=== PATIENT | female | born 1985 | race Caucasian/White ===

== ENCOUNTER 2018-07-09 12:26 | Outpatient (CLI) | payer OTHER ==
[~2018-07-09] VITALS: Ht 167.6 cm; Wt 68.9 kg
[2018-07-09 12:53] VITALS: Ht 167.6 cm; Wt 68.9 kg
[2018-07-09 12:54] VITALS: BP 99/58; PULSE 75; RESP 20
[2018-07-09] MEDS ORDERED: PREN1TAB13 PO (12:57)
[2018-07-09] MEDS ORDERED: ASPI-831 PO (12:58)
--- NOTE | 2018-07-09 14:22 | PN ---
Triage Information Date/Time Reason for visit: Itching Weeks of Gestation 25+ /Para 5/3 Diabetes: none Hypertention: none Objective Vital Signs Date Temp Pulse Resp B/P (MAP) Pulse Ox O2 O2 Flow FiO2 Time Delivery Rate 07/09/18 98.3 75 20 99/58 (72) Room Air 12:54 Heart Rate: 140's Contractions: None Results/Medications Result Diagram: 07/09/18 1259 Results 24 hrs Laboratory Tests Test 07/09/18 12:59 Sodium Level 136 Potassium Level 3.7 Chloride Level 105 Carbon Dioxide Level 22 Anion Gap 9 Blood Urea Nitrogen 8 Creatinine 0.51 Est Glomerular Filtrat Rate mL/min > 60 Glucose Level 84 Calcium Level 8.9 Total Bilirubin 0.2 Direct Bilirubin 0.00 Indirect Bilirubin 0.2 Aspartate Amino Transf (AST/SGOT) 23 Alanine Aminotransferase (ALT/SGPT) 18 Alkaline Phosphatase 67 Total Protein 6.7 Albumin 3.6 Globulin 3.10 Albumin/Globulin Ratio 1.16 Disposition: Discharge Assessment/Plan 3-4 moths generalized itching.The severity has not changed over last few months Labs reviewed Ultrasound reviewed Questions answered patient offered to be seen by a perinatologist as inpatient,she declines and is recommended a perinatologist through her clinic Follow up with provider Precautions discussed AGUILA CALLEJAS M.D. Jul 09, 2018 14:22
--- NOTE | 2018-07-09 14:51 | TRIAGE ---
OB Triage Datetime Report Generated by CPN: 07/09/2018 14:51 Datetime: 07/09/2018 13:29 Comments: BEDSIDE US Datetime: 07/09/2018 12:42 Stage of : OB Triage Assessment Type: Triage Maternal Assessment Level of Consciousness: Fully Conscious DTR's/Clonus: DTRs 2+; No Clonus Headache: Denies Blurred Vision: No Respiratory Effort: Unlabored; Regular Rhythm; Equal Expansion Breath Sounds, Left: Clear and Equal Breath Sounds, Right: Clear and Equal Nausea/Vomiting: Denies RUQ Epigastric Pain: Denies Lower Extremities Edema: None Degree: None Upper Extremities Edema: None Degree: None Facial Edema: None Temperature Route: Oral Fall Risk Assessment History of Falling: (0) No Secondary Diagnosis: (0) No Ambulatory Aid: (0) Bedrest/Nurse Assist IV Therapy: (0) No Gait: (0) Normal/Bedrest/Immobile Mental Status: (0) Oriented to Own Ability Fall Score: 0 Fall Risk Score Definition: No Risk: No action required Labor Evaluation Monitor Mode: External Heart Rate Monitor Mode: External US Pain Assessment Pain Scale: 0 Pain Presence: None/Denies Pain Type: N/A Datetime: 07/09/2018 12:41 Time of Arrival: 07/09/2018 12:15 EGA: 25.1 Arrived By: Ambulatory Arrived From: Office Chief Complaint: SENT TO R/O CHOLESTASIS Movement: Present Contractions: Denies/Absent Rupture of Membranes: Denies Vaginal Bleeding: None Vaginal Discharge: Denies Recent Sexual Intercouse: Denies Abdominal Trauma: Not Applicable Patient Complaints: Other Time Provider Notified: 07/09/2018 14:18 Provider Notified: DR. CALLEJAS Initial Plan: BILE ACIDS, CMP EFW, PEG
== END 2018-07-09 14:58 | disposition home or self-care (01) ==
LOC: OBT 12:26 → L-D 12:26 → OBT 14:58
PROVIDERS: ATTEND Specialist
DX: O26.892 Other specified pregnancy related conditions, second trimester (principal); L29.9 Pruritus, unspecified; Z3A.25 25 weeks gestation of pregnancy
CPT/HCPCS: 76815; 80053; 83789; Z7500; G0463